=== PATIENT | male | born 1935 | race Caucasian/White ===

== ENCOUNTER 2020-03-18 17:57 | Emergency (ER) | payer MEDICARE, OTHER ==
[~2020-03-18] VITALS: Ht 185 cm; Wt 119.0 kg
--- NOTE | 2020-03-18 18:37 | NUR ---
SEE LIST FOR CURRENT MEDS
--- NOTE | 2020-03-18 18:55 | ED GU-Male ---
General Chief Complaint: Catheter/Drain/Tube Problems Stated Complaint: BLOCKED CATHETER Nursing Triage Note: PT TO ROOM 5 PER W/C PT DAUGHTER W PT, STATES NO URINE OUTPUT IN SUPRAPUBIC SAGASTUME AND IS UNABLE TO IRRIGATE SUPRA PUBIC CATH. PT STATES WAS ABLE TO URINATE FROM [place]ENIS AT APPROX 5:00PM TODAY. SUPRAPUBIC PLACED 02/15/20 IN [place], PT TO SEE UROLOGIST IN [place] FOR FOLLOW UP 6 WEEKS POST OP FOR CATH CHANGE Source: patient, family Exam Limitations: no limitations History of Present Illness Date Seen by Provider: Mar 18, 2020 Time Seen by Provider: 18:05 Initial Comments Mr. Dumont is an 84-year-old gentleman who presents to the emergency room accompanied by his daughter with obstruction of a suprapubic catheter that was placed February 14 in [place]. Patient had complications after a greenlight prostatectomy in mid December. He underwent multiple Sagastume catheter exchanges and on 1 of those exchanges sustained injury to the prostate with inflation of the bulb within the prostate. He ultimately had the suprapubic catheter placed on February 14. He has had no major problems since then until obstruction today. He has been able to void through the urethra just prior to arrival. He also noted his urine has become more cloudy in recent days. He has no significant pain and is afebrile. He has slight tenderness around the suprapubic catheter on palpation. They are to follow-up with Dr. Hollins in [place] 6 weeks postop to have the catheter switched out. Allergies and Home Medications Allergies Coded Allergies: No Known Drug Allergies (Unverified , 03/18/20) Home Medications Cephalexin 500 Mg Capsule, 500 MG PO TID Prescribed by: SANGEETA COOK on 03/18/202058 Patient Home Medication List Home Medication List Reviewed: Yes Review of Systems Review of Systems Constitutional: no symptoms reported EENTM: no symptoms reported Respiratory: no symptoms reported Cardiovascular: no symptoms reported Gastrointestinal: see HPI Genitourinary: see HPI Musculoskeletal: no symptoms reported Skin: no symptoms reported Psychiatric/Neurological: No Symptoms Reported Endocrine: No Symptoms Reported Past Acaoywo-Gaomrd-Rstbcr Hx Past Med/Social Hx: Reviewed Nursing Past Med/Soc Hx Patient Social History Alcohol Use: Denies Use Smoking Status: Never a Smoker Recent Infectious Disease Expo: No Recent Hopitalizations: Yes (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 oz. kg; 34.00 BMI Method: General Appearance: WD/WN, no apparent distress HEENT: normal ENT inspection Cardiovascular: regular rate, rhythm, no murmur Respiratory: lungs clear, normal breath sounds, no respiratory distress Gastrointestinal: normal bowel sounds, soft, tenderness (Mild tenderness in the suprapubic region) Extremities: normal inspection, no pedal edema Neurologic/Psychiatric: sales promotion officer II-XII nml as tested, no motor/sensory deficits, alert, normal mood/affect, oriented x 3 Skin: normal color, warm/dry, other (No inflammation or erythema surrounding the suprapubic catheter) Progress/Results/Core Measures Suspected Sepsis Recent Fever Within 48 Hours: No Infection Criteria Present: Suspected New Infection New/Unexplained Altered Menta: No Sepsis Screen: No Definite Risk SIRS Temperature: Pulse: 41 Respiratory Rate: 18 Blood Pressure 103 /51 Mean: 68 Results/Orders Lab Results Laboratory Tests Test 03/18/20 19:37 Range/Units Urine Color YELLOW Urine Clarity CLOUDY Urine pH 6.5 5-9 Urine Specific [place] 1.015 L 1.016-1.022 Urine Protein TRACE H NEGATIVE Urine Glucose (UA) NEGATIVE NEGATIVE Urine Ketones NEGATIVE NEGATIVE Urine Nitrite NEGATIVE NEGATIVE Urine Bilirubin NEGATIVE NEGATIVE Urine Urobilinogen 0.2 < = 1.0 MG/DL Urine Leukocyte Esterase 3+ H NEGATIVE Urine RBC (Auto) 1+ H NEGATIVE Urine RBC NONE /HPF Urine WBC >100 H /HPF Urine Squamous Epithelial Cells NONE /HPF Urine Crystals PRESENT H /LPF Urine Amorphous Sediment MOD AYAN URATES H /LPF Urine Bacteria FEW H /HPF Urine Casts NONE /LPF Urine Mucus NEGATIVE /LPF Urine Culture Indicated YES My Orders Orders - SANGEETA IZQUIERDO MD Ua Culture If Indicated (03/18/20 18:55) Bladder Scan (03/18/20 18:55) Urine Culture (03/18/20 19:37) Cephalexin Capsule (Keflex Capsule) (03/18/20 20:30) Lidocaine 2% (Urojet) (Xylocaine Urojet) (03/18/20 20:30) Medications Given in ED Current Medications Medications Dose Ordered Sig/Sinan Route Start Time Stop Time Status Last Admin Dose Admin Cephalexin HCl 500 mg ONCE ONCE PO 03/18/20 20:30 03/18/20 20:31 DC 03/18/20 21:35 500 MG Vital Signs/I&O 03/18/20 03/19/20 18:05 02:53 Temp 35.8 36.7 Pulse 41 56 Resp 18 18 B/P (MAP) 103/51 (68) 149/77 (68) Pulse Ox 96 96 Capillary Refill : Less Than 3 Seconds Blood Pressure Mean: 68 Progress Note #1: Time: 19:06 Progress Note We have tried to flush the catheter with normal saline. To the bulb of the catheter was deflated and reinflated. We attempted to flush again which was unsuccessful. A small stylette was used to try to clear obstruction by passing it to the level of the skin. Flushing after this also was not successful. Case was discussed with Rayray Barragan, assistant plant controller to Dr. Hollins in [place]. It is preferable that a urologist to replace the catheter until 6 weeks postop to ensure no separation of the bladder wall. We will have him void again and send a urinalysis. We will do a post void measurement. If the bladder volume is tolerable, we will send him home with plan for follow-up with Dr. Hollins on Friday. If there is an unacceptable volume, I will either replace the catheter or contact Rayray Yung again for further advice after discussion with the patient and his daughter. Progress Note #2: Progress Note Patient voided approximately 100 mL urine that was cloudy. Urinalysis demonstrated pyuria. Bladder scan post void demonstrated about 500 mL retained urine. I discussed the situation with Mr. Barragan again. He recommended trying to replace the suprapubic catheter. This was done without complication. Antibiotic therapy was started with Keflex. They are to call Dr. Hollins's office on Friday for follow-up. Departure Impression Primary Impression: Blocked suprapubic catheter Qualified Codes: T83.090A - Other mechanical complication of cystostomy catheter, initial encounter Additional Impression: Urinary tract infection Qualified Codes: N39.0 - Urinary tract infection, site not specified Disposition: HOME, SELF-CARE Condition: Improved Departure-Patient Inst. Decision time for Depature: 20:58 Referrals: [facility] [place] (PCP/Family) Primary Care Physician Patient Instructions: How to Care for Your Suprapubic Urinary Catheter, Urinary Tract Infection, Adult (DC) Add. Discharge Instructions: Please follow-up with Dr. Hollins's office first thing on Friday morning. Until then continue to drain the catheter bag frequently and take your antibiotics as prescribed. Call or return to care with questions or concerns. Try to keep the catheter bag lower than the level of your bladder is much as possible. Drink plenty of clear liquids. All discharge instructions reviewed with patient and/or family. Voiced understanding. Scripts Cephalexin (Cephalexin) 500 Mg Capsule 500 MG PO TID, #20 CAP Prov: SANGEETA IZQUIERDO MD 03/18/20 SANGEETA IZQUIERDO MD Mar 18, 2020 18:55
[2020-03-18 19:45] LABS: BILIRUBIN,URINE NEGATIVE (NEGATIVE); CLARITY,URINE CLOUDY; COLOR,URINE YELLOW; GLUCOSE, URINE (UA) NEGATIVE (NEGATIVE); KETONES,URINE NEGATIVE (NEGATIVE); LEUKOCYTE ESTERASE ,URINE 3+ (NEGATIVE); NITRITE,URINE NEGATIVE (NEGATIVE); PH,URINE 6.5 (5-9); PROTEIN,URINE TRACE (NEGATIVE)
[2020-03-18 19:57] LABS: AMORPHOUS SEDIMENT,UR MOD AMOR URATES /LPF; BACTERIA,URINE FEW /HPF; WBC,URINE >100 /HPF
[2020-03-18] MEDS ORDERED: LIDOCAINE UROJET 2% GEL 10 ML PKG TOP ONE (20:30)
[2020-03-18] MEDS ORDERED: CEPHALEXIN 250 MG (KEFLEX) CAP PO ONE (20:30)
[2020-03-18] MEDS ORDERED: CEPH500C PO (20:59)
[2020-03-19 02:53] VITALS: BP 149/77
== END 2020-03-18 21:38 | disposition home or self-care (01) ==
LOC: ER 18:01
DX: T83.198A Other mechanical complication of other urinary devices and implants, initial encounter (principal); N39.0 Urinary tract infection, site not specified
CPT/HCPCS: 51702; 81000; 87077; 87088

== ENCOUNTER → 2021-08-08 | Outpatient (CLI) | payer MEDICARE, OTHER ==
[~2021-08-08] MED LIST: CEPH500C PO
== END ==
LOC: CARD 11:24
PROVIDERS: ATTEND Pediatrics
DX: I35.0 Nonrheumatic aortic (valve) stenosis (principal); I51.7 Cardiomegaly; Z86.79 Personal history of other diseases of the circulatory system
CPT/HCPCS: 93306

== ENCOUNTER → 2021-09-04 | Outpatient (CLI) | payer MEDICARE, OTHER ==
[~2021-09-04] MED LIST changes: +RT-ALBUTEROL SULF 2.5 MG/3 ML PRE-MIX VIAL INH ONE
== END ==
LOC: RT 09:50
PROVIDERS: ATTEND Internal Medicine Cardiovascular Disease
DX: I48.0 Paroxysmal atrial fibrillation (principal)
CPT/HCPCS: 94060; 94726; 94729

== ENCOUNTER → 2022-11-29 | Outpatient (CLI) | payer MEDICARE, OTHER ==
[~2022-11-29] MED LIST changes: -RT-ALBUTEROL SULF 2.5 MG/3 ML PRE-MIX VIAL INH ONE
== END ==
LOC: CANPRECLI → CARD 14:30
PROVIDERS: ATTEND Internal Medicine Cardiovascular Disease
DX: I11.9 Hypertensive heart disease without heart failure (principal); I35.0 Nonrheumatic aortic (valve) stenosis
CPT/HCPCS: 93306

== ENCOUNTER → 2023-01-01 | Outpatient (CLI) | payer MEDICARE, OTHER ==
[~2023-01-01] MED LIST changes: +REGADENOSON 0.4 MG/5 ML SYR IV ONE
[2023-01-01] MEDS: CATHETER FLUSH 10 ML SYR IVP PRN ×2 (08:20→09:20)
[2023-01-01 09:19] VITALS: BP 162/89
--- NOTE | 2023-01-01 11:43 | Cardiology Stress Test Report ---
Stress Test Report Date of Procedure/Referring: Date of Procedure: Jan 01, 2023 [facility] Admitting Physician Admitting Physician: Attending Physician: Yaima Briceno MD Baseline Heart Rate: 59 Baseline Blood Pressure: Blood Pressure Systolic: 162 Blood Pressure Diastolic: 89 Baseline Vitals Vital Signs Date Time Temp Pulse Resp B/P (MAP) Pulse Ox O2 Delivery O2 Flow Rate FiO2 01/01/23 09:19 59 162/89 (113) 97 Baseline EKG: Baseline EKG: NSR Summary After explaining the procedure to the patient, he signed a consent and then brought to the stress nuclear laboratory. Patient received 0.4 mg Lexiscan for stress test, ECG, heart rate and blood pressure were monitored continuously. Resting and stress dose of radio tracer were injected, imaging was acquired and reviewed in short axis, horizontal long axis and vertical long axis views. TID: 1.08 SSS: 11 SDS: 3 EF: 55 Patient tolerated Lexiscan well Large area of decreased uptake involving the whole inferior wall with mild reversibility at the inferolateral wall, mild reversible ischemia Normal left ventricular size, ejection fraction 55% Copy Copies To 1: [facility]/ YAIMA BRICENO MD Jan 01, 2023 11:43
== END ==
LOC: CARD 08:15
PROVIDERS: ATTEND Internal Medicine Cardiovascular Disease
DX: I10 Essential (primary) hypertension (principal); I25.10 Atherosclerotic heart disease of native coronary artery without angina pectoris
CPT/HCPCS: 78452; 93017; A9502